=== PATIENT | female | born 1970 | race Two or more races ===

== ENCOUNTER 2020-05-21 18:58 | Emergency (ER) | payer OTHER ==
[~2020-05-21] VITALS: Ht 162.6 cm; Wt 76.2 kg
== END 2020-05-21 21:17 | disposition home or self-care (01) ==
LOC: ER 18:58
DX: K81.0 Acute cholecystitis (principal)

== ENCOUNTER 2020-05-24 07:50 | Inpatient (IN) | payer OTHER ==
[~2020-05-24] VITALS: Ht 162.6 cm; Wt 74.4 kg
[2020-05-24] MEDS ORDERED: KAPSPARGO SPRIN25 MG (08:41)
[2020-05-25] MEDS ORDERED: ULTRACET PO (08:44)
== END 2020-05-25 12:09 | disposition home or self-care (01) | DRG 419 ==
LOC: ER 07:50 → SEC-K 10:34 → SURH 16:52
PROVIDERS: ADMIT Surgery; ATTEND Surgery
PROC: BF13YZZ Fluoroscopy of Gallbladder and Bile Ducts using Other Contrast (ICD-10-PCS; 2020-05-24)
PROC: 0FT44ZZ Resection of Gallbladder, Percutaneous Endoscopic Approach (ICD-10-PCS; principal; 2020-05-24 19:30)
DX: K80.10 Calculus of gallbladder with chronic cholecystitis without obstruction (principal)

== ENCOUNTER 2020-12-21 13:40 | Day surgery (SDC) | payer OTHER ==
[~2020-12-21 13:40] MED LIST: KAPSPARGO SPRIN25 MG; ULTRACET PO
== END 2020-12-21 18:10 | disposition home or self-care (01) ==
LOC: AMB-ENDOS 13:40 → EDBD 13:45 → AMB-ENDOS 13:45
PROVIDERS: ATTEND Surgery
DX: K62.89 Other specified diseases of anus and rectum (principal); Z20.822 Contact with and (suspected) exposure to COVID-19

== ENCOUNTER 2021-10-05 11:32 | Emergency (ER) | payer OTHER ==
[~2021-10-05] VITALS: Ht 162.6 cm; Wt 77.1 kg
[2021-10-05] MEDS ORDERED: OMEPRAZOLE MAGN20 MG PO (17:56)
== END 2021-10-05 18:07 | disposition home or self-care (01) ==
LOC: ER 11:32
DX: K29.00 Acute gastritis without bleeding (principal)

== ENCOUNTER 2021-11-21 07:56 | Outpatient (CLI) | payer OTHER ==
[~2021-11-21 07:56] MED LIST changes: +OMEPRAZOLE MAGN20 MG PO
== END 2021-11-21 08:45 | disposition home or self-care (01) ==
LOC: SONOGRAMA 07:56
PROVIDERS: ATTEND Pathology Anatomic Pathology & Clinical Pathology
DX: E04.2 Nontoxic multinodular goiter (principal)

== ENCOUNTER 2022-03-18 07:15 | Emergency (ER) | payer OTHER ==
[~2022-03-18] VITALS: Ht 165.1 cm; Wt 77.1 kg
== END 2022-03-18 14:03 | disposition home or self-care (01) ==
LOC: ER 07:15
DX: K57.32 Diverticulitis of large intestine without perforation or abscess without bleeding (principal); Z88.2 Allergy status to sulfonamides; Z88.6 Allergy status to analgesic agent; K21.9 Gastro-esophageal reflux disease without esophagitis; I10 Essential (primary) hypertension; N83.202 Unspecified ovarian cyst, left side

== ENCOUNTER 2022-05-12 17:09 | Emergency (ER) | payer OTHER ==
[~2022-05-12] VITALS: Ht 162.6 cm; Wt 71.2 kg
[2022-05-12] MEDS ORDERED: METOPROLOL SUCC25 MG PO (17:20)
[2022-05-12] MEDS ORDERED: FLONASE16 GM NS (17:21)
[2022-05-12] MEDS ORDERED: FAMOTIDINE20 MG PO (17:21)
== END 2022-05-12 21:48 | disposition home or self-care (01) ==
LOC: ER 17:09
DX: J45.998 Other asthma (principal); Z88.2 Allergy status to sulfonamides; Z88.6 Allergy status to analgesic agent; Z88.8 Allergy status to other drugs, medicaments and biological substances; Z20.822 Contact with and (suspected) exposure to COVID-19

== ENCOUNTER 2022-07-14 12:06 | Emergency (ER) | payer OTHER ==
[~2022-07-14] VITALS: Ht 162.6 cm; Wt 71.2 kg
[~2022-07-14 12:06] MED LIST changes: +FAMOTIDINE20 MG PO; +FLONASE16 GM NS; +METOPROLOL SUCC25 MG PO
[2022-07-14] MEDS ORDERED: WIXELA 250-501 EACH IH (12:23)
[2022-07-14] MEDS ORDERED: PEPCID AC20 MG PO (17:48)
[2022-07-14] MEDS ORDERED: INTESTINEX680 M1 PO (17:48)
== END 2022-07-14 17:51 | disposition home or self-care (01) ==
LOC: ER 12:06
DX: K57.90 Diverticulosis of intestine, part unspecified, without perforation or abscess without bleeding (principal)